=== PATIENT | male | born 1945 | race Caucasian/White ===

== ENCOUNTER 2017-02-24 07:41 | Day surgery (SDC) | payer MEDICARE, OTHER ==
--- NOTE | ~2017-02-24 | EGD ---
EGD REPORT [facility] [address] [id number] NAME: CAMPOS AVELAR : [birth year] STATUS : REG [facility]#: [id number] AGE: 71 ADM/REG DATE : 02/24/17 MR#: [id number] REPORT SERV DATE: 02/24/17 DICTATED BY: TANYA HEART DATE: 02/24/17 REPORT STATUS : Draft [facility] DATE: 02/24/17 Endoscopy Center Patient Name: Campos Avelar Date of : 1945 Attending MD: TANYA HEART, Procedure Date No Time: 02/24/2017 Procedure: Upper GI endoscopy Indications: Follow-up of Rucker's esophagus Referring MD: Jc Jeffrey Complications: No immediate complications. Estimated blood loss: None. Procedure: Pre-Anesthesia Assessment: - ASA Grade Assessment: III - A patient with severe systemic disease. After obtaining informed consent, the endoscope was passed under direct vision. Throughout the procedure, the patient's blood pressure, pulse, and oxygen saturations were monitored continuously. The GIF [id number] was introduced through the mouth, and advanced to the second part of duodenum. The upper GI endoscopy was accomplished without difficulty. The patient tolerated the procedure well. Findings: The esophagus and gastroesophageal junction were examined with white light. Rucker's esophagus was present, extending from the upper extent of the gastric folds which were at 35 cm from the incisors. Scattered islands of salmon-colored mucosa were present from 25 to 35 cm. Some of these were large and perhaps only 35% of lumen has responded to therapy. The maximum longitudinal extent of these esophageal mucosal changes was 10 cm in length. Mucosa was biopsied with a cold forceps for histology at intervals of 2 cm at 25 cm from the incisors, at 27 cm from the incisors, at 29 cm from the incisors, at 31 cm from the incisors, at 33 cm from the incisors and at 35 cm from the incisors. A total of 6 specimen bottles were sent to pathology. A 6 cm hiatus hernia was present. The exam of the stomach was otherwise normal. The cardia and gastric fundus were normal on retroflexion. The examined duodenum was normal. Impression: - Rucker's esophagus. Biopsied. - Hiatus hernia. - Normal examined duodenum. Recommendation: - Patient has a contact number available for emergencies. The signs and symptoms of potential delayed EGD REPORT [address] [place]. [address] NAME: CAMPOS AVELAR : 43 STATUS : [facility] PAT#: [id number] AGE: 71 ADM/REG DATE : 02/24/17 MR#: [id number] REPORT SERV DATE: 02/24/17 DICTATED BY: TANYA HEART DATE: 02/24/17 REPORT STATUS : Draft TRANSCRIBED BY: [employer] DATE: 02/24/17 complications were discussed with the patient. Return to normal activities tomorrow. Written discharge instructions were provided to the patient. - Return to previous diet. - Continue present medications. - Await pathology results. - Will have pt f/u to discuss antireflux surgery vs surveillance given significant lack of response to RFA. Procedure Code(s): --- Professional --- 32022, Esophagogastroduodenoscopy, flexible, transoral; with biopsy, single or multiple Diagnosis Code(s): --- Professional --- K22.70, Rucker's esophagus without dysplasia K44.9, Diaphragmatic hernia without obstruction or gangrene CPT copyright 2013 [employer]. All rights reserved. The codes documented in this report are preliminary and upon program evaluator review may be revised to meet current compliance requirements. TANYA HEART, 02/24/2017 8:53 AM Number of Addenda: 0 Note Initiated On: 02/24/2017 8:28 AM [address] [place] [id number]
[~2017-02-24 07:41] MED LIST: CLINDA150 PO; FISH-EPA1000 MG PO; INVOKAMET PO; NORCO1 TA1 PO; PRILOSEC40 MG PO; PRIN20 PO; PROTONIX PO; VITAMIN D1000 UNI1 PO
== END 2017-02-24 23:59 | disposition home or self-care (01) ==
LOC: DMU 07:41
PROVIDERS: Internal Medicine Gastroenterology
PROC: 0DB58ZX Excision of Esophagus, Via Natural or Artificial Opening Endoscopic, Diagnostic (ICD-10-PCS; principal; 2017-02-24 09:00)
DX: K22.70 Barrett's esophagus without dysplasia (principal); K44.9 Diaphragmatic hernia without obstruction or gangrene; K21.9 Gastro-esophageal reflux disease without esophagitis; I10 Essential (primary) hypertension; E11.9 Type 2 diabetes mellitus without complications; N40.0 Benign prostatic hyperplasia without lower urinary tract symptoms; H91.90 Unspecified hearing loss, unspecified ear; M19.90 Unspecified osteoarthritis, unspecified site; Z88.0 Allergy status to penicillin; Z87.891 Personal history of nicotine dependence; Z96.653 Presence of artificial knee joint, bilateral; Z79.899 Other long term (current) drug therapy; Z98.890 Other specified postprocedural states
CPT/HCPCS: 82962; 88305